=== PATIENT | female | born 1955 | race Caucasian/White ===

== ENCOUNTER → 2018-03-13 | Outpatient (CLI) | payer OTHER ==
[~2018-03-13] MED LIST: MELO15TA24 PO
== END | disposition home or self-care (01) ==
LOC: CFH 11:56
PROVIDERS: ATTEND Nurse Practitioner
DX: Z12.31 Encounter for screening mammogram for malignant neoplasm of breast (principal)
CPT/HCPCS: 77063; 77067

== ENCOUNTER → 2019-03-29 | Outpatient (CLI) | payer MEDICAID, OTHER ==
[~2019-03-29] MED LIST changes: +MULT-516 PO
== END | disposition home or self-care (01) ==
LOC: STAR 11:01
PROVIDERS: ATTEND Thoracic Surgery (Cardiothoracic Vascular Surgery)
DX: Z01.818 Encounter for other preprocedural examination (principal)
CPT/HCPCS: 93005

== ENCOUNTER 2019-04-03 09:25 | Day surgery (SDC) | payer MEDICAID, OTHER ==
[~2019-04-03] VITALS: Ht 157.5 cm; Wt 114.4 kg
[~2019-04-03 09:25] MED LIST changes: +BUPIVACAINE/PF 0.5% ONE; +EPINEPHRINE 1 MG/ML, 1ML ONE
[2019-04-03 09:54] VITALS: BP 152/83
[2019-04-03] MEDS ORDERED: LIDOCAINE-MPF 1%, 2ML ONE (10:03)
[2019-04-03] MEDS ORDERED: LACTATED RINGERS 1,000 ML IV SCH ×2 (10:20→13:12)
[2019-04-03] MEDS ORDERED: LIDOCAINE-MPF 1%, 2ML INFIL ONE (11:00)
[2019-04-03] MEDS ORDERED: PHENYLEPHRINE 10 MG/ML ONE (12:17)
[2019-04-03] MEDS ORDERED: ROCURONIUM 10MG/ML,5ML ONE (12:17)
[2019-04-03] MEDS ORDERED: FENTANYL PF 250 MCG/5ML ONE (12:18)
[2019-04-03] MEDS ORDERED: MIDAZOLAM 1 MG/ML, 2ML ONE (12:18)
[2019-04-03] MEDS ORDERED: CEFOTETAN PMX 1GM/50ML 100 ML ONE (12:53)
[2019-04-03] MEDS ORDERED: SUGAMMADEX 200 MG/2 ML IVPush ONE (12:53)
[2019-04-03] MEDS ORDERED: LIDOCAINE-MPF 2% ,5ML ONE (12:53)
[2019-04-03] MEDS ORDERED: PROPOFOL 10 MG/ML, 20ML ONE (12:53)
[2019-04-03] MEDS ORDERED: DEXAMETHASONE 4 MG/ML, 1ML ONE (12:53)
[2019-04-03] MEDS ORDERED: ONDANSETRON 2MG/ML, 2ML ONE (12:53)
[2019-04-03] MEDS ORDERED: hydrALAzine 20 MG/ML, 1ML IV PRN (13:00)
[2019-04-03] MEDS ORDERED: ACETAMINOPHEN 325 MG TABLET PO PRN (13:00)
[2019-04-03] MEDS ORDERED: OXYcodone 5 MG/5 ML ORAL.SOL UDC PO PRN (13:00)
[2019-04-03] MEDS ORDERED: MEPERIDINE/PF 25MG/ML,1ML IVPush PRN (13:00)
[2019-04-03] MEDS ORDERED: HYDROmorphone 2 MG/ML, 1ML IVPush PRN (13:00)
[2019-04-03] MEDS ORDERED: PROMETHAZINE 25 MG/ML, 1ML IV PRN (13:00)
[2019-04-03] MEDS ORDERED: PROMETHAZINE 25 MG/ML, 1ML ONE (13:24)
[2019-04-03] MEDS ORDERED: FENTANYL PF 100 MCG/2ML ONE (13:24)
[2019-04-03] MEDS ORDERED: ONDANSETRON 2MG/ML, 2ML IVPush PRN (13:30)
[2019-04-03] MEDS: FENTANYL PF 100 MCG/2ML IV PRN ×2 (13:30→13:43)
[2019-04-03] MEDS ORDERED: morphine SULFATE 10 MG/ML, 1ML IVPush PRN (13:30)
[2019-04-03] MEDS ORDERED: HYDROcodone/APAP 5/325 TABLET PO PRN (13:30)
[2019-04-03] MEDS ORDERED: KETOROLAC 30 MG/1 ML IVPush PRN (13:30)
[2019-04-03] MEDS ORDERED: ACETAMINOPHEN 650 MG/20.3 ML UDC ONE (14:15)
== END 2019-04-03 16:00 | disposition home or self-care (01) ==
LOC: OUT 09:25
PROVIDERS: ATTEND Thoracic Surgery (Cardiothoracic Vascular Surgery)
DX: K95.09 Other complications of gastric band procedure (principal); R13.10 Dysphagia, unspecified; E66.01 Morbid (severe) obesity due to excess calories; I10 Essential (primary) hypertension; F32.9 Major depressive disorder, single episode, unspecified; Z68.42 Body mass index [BMI] 45.0-49.9, adult; Z79.899 Other long term (current) drug therapy; Z91.048 Other nonmedicinal substance allergy status; Z90.710 Acquired absence of both cervix and uterus; Z82.49 Family history of ischemic heart disease and other diseases of the circulatory system; Z83.49 Family history of other endocrine, nutritional and metabolic diseases; Y84.8 Other medical procedures as the cause of abnormal reaction of the patient, or of later complication, without mention of misadventure at the time of the procedure
CPT/HCPCS: 43774; J0171; J1100; J2250; J2370; J2405; J2550; J2704; J3010; J3490; J7120